=== PATIENT | female | born 1960 | race Caucasian/White ===

== ENCOUNTER 2020-08-03 07:23 | Inpatient (IN) | payer BC ==
[2020-08-03] VITALS (18 sets, daily range): BP systolic 125–147; BP diastolic 70–85
[~2020-08-03] VITALS: Ht 175.3 cm; Wt 65.9 kg
[2020-08-03] MEDS ORDERED: ondansetron/PF 4mg/2ml inj IV ONE ×2 (07:50→10:00)
[2020-08-03] MEDS: morphine 4 MG/ML inj SYRINge IV PRN ×2 (08:07→08:23)
[2020-08-03 09:12] LABS: BASOPHILS % (AUTO) 0.3 % (0-1); EOSINOPHILS % (AUTO) 0.1 % (0-6); HEMATOCRIT 39.1 % (35.0-45.0); HEMOGLOBIN 13.2 g/dl (12.0-16.0); LYMPHOCYTES # (AUTO) 0.8 X10'3 (1.1-4.8); LYMPHOCYTES % (AUTO) 9.9 % (21-51); MEAN CORPUSCULAR HEMOGLOBIN 30.4 PG (27.0-31.0); MEAN CORPUSCULAR HGB CONC 33.8 g/dL (33.0-36.5); MEAN CORPUSCULAR VOLUME 89.9 FL (78-98); MEAN PLATELET VOLUME 7.7 FL (7.4-10.4); MONOCYTES # (AUTO) 0.4 X10'3 (0-0.9); MONOCYTES % (AUTO) 4.8 % (2-12); NEUTROPHILS # (AUTO) 7.2 X10'3 (1.8-7.7); NEUTROPHILS % (AUTO) 84.9 % (42-75); PLATELET COUNT 290 X10'3 (140-440); RED BLOOD COUNT 4.35 X10'6 (4.20-5.60); RED CELL DISTRIBUTION WIDTH 12.8 % (11.5-14.5); WHITE BLOOD COUNT 8.5 X10'3 (4.5-11.0)
[2020-08-03 09:21] LABS: PARTIAL THROMBOPLASTIN TIME 28 SECONDS (22-32)
[2020-08-03 09:23] LABS: ALANINE AMINOTRANSFERASE 22 U/L (12-78); ALBUMIN 3.9 G/DL (3.4-5.0); ALKALINE PHOSPHATASE 73 IU/L (46-116); ANION GAP 13 (8-16); ASPARTATE AMINO TRANSFERASE 20 U/L (10-37); BILIRUBIN,TOTAL 0.5 MG/DL (0.1-1.0); BLOOD UREA NITROGEN 14 MG/DL (7-18); BUN/CREATININE RATIO 18.9 (6.6-38.0); CALCIUM 8.9 MG/DL (8.5-10.1); CHLORIDE 106 MMOL/L (99-107); CREATININE 0.74 MG/DL (0.40-0.90); GLUCOSE 122 MG/DL (70-104); POTASSIUM 4.1 MMOL/L (3.5-5.1); SODIUM 143 MMOL/L (135-145); TOTAL CARBON DIOXIDE 24.1 MMOL/L (24-32); TOTAL PROTEIN 7.9 G/DL (6.4-8.2); eGFR 80 ML/MIN
[2020-08-03] MEDS ORDERED: acetaminophen 325mg tablet PO PRN (09:55)
[2020-08-03] MEDS ORDERED: magnesium hydroxide 30ml (MOM) UD suspension PO PRN (09:55)
[2020-08-03] MEDS ORDERED: morphine 2 MG/ML inj. syringe IV PRN ×3 (09:55→11:05)
[2020-08-03] MEDS ORDERED: mag hydrox/Alum hydrox/simeth 30ml oral suspension PO PRN (09:55)
[2020-08-03] MEDS ORDERED: HYDROmorphone 1 mg/ml syringe IV ONE (10:00)
[2020-08-03] MEDS: heparin, porcine 5000 units/ml vial SQ SCH ×2 (10:01→22:13)
[2020-08-03] MEDS: normal saline 1000ml 1,000 ML IV SCH ×2 (10:16→16:56)
[2020-08-03] MEDS ORDERED: sevoflurane 250ml liquid IH ONE (11:01)
[2020-08-03] MEDS ORDERED: ondansetron/PF 4mg/2ml inj IV PRN (11:05)
[2020-08-03] MEDS ORDERED: hydrALAZINE 20mg/ml inj. IV PRN (11:05)
[2020-08-03] MEDS ORDERED: proCHLORperazine 10 MG/2 ml inj IV PRN (11:05)
[2020-08-03] MEDS ORDERED: morphine 4 MG/ML inj SYRINge IV PRN (11:05)
[2020-08-03] MEDS ORDERED: ringers solution, lacted 1,000 ML IV SCH (11:05)
[2020-08-03] MEDS ORDERED: acetaminophen 1,000mg/100ml IV 100 ML IV PRN (11:05)
[2020-08-03] MEDS ORDERED: labetalol 20mg/4ml (5mg/ml) syringe IV PRN (11:05)
[2020-08-03] MEDS ORDERED: meperidine/PF 25mg/ml syringe IV PRN ×3 (11:05)
[2020-08-03] MEDS ORDERED: ketorolac trometh. 30mg/ml inj. IV ONE (11:05)
[2020-08-03] MEDS ORDERED: aprepitant 40mg capsule PO ONE (11:06)
[2020-08-03] MEDS ORDERED: fentaNYL/PF 50MCG/1 ML 2ML syringe ONE (11:10)
[2020-08-03] MEDS ORDERED: midazolam 2 mg/2 ml injection ONE (11:10)
[2020-08-03] MEDS ORDERED: famotidine/PF 10 mg/ml inj IV ONE (11:11)
[2020-08-03] MEDS ORDERED: ePHEDrine 50MG/ML INJ. ONE (11:29)
[2020-08-03] MEDS ORDERED: ceFAZolin 1000mg inj ONE ×3 (11:30)
[2020-08-03] MEDS ORDERED: LIDOcaine 2% (20mg/ml) 5ml vial ONE (11:30)
[2020-08-03] MEDS ORDERED: propofol inj 20 ML IV ONE (11:30)
[2020-08-03] MEDS ORDERED: rocuronium 10mg/ml inj IV ONE (11:30)
[2020-08-03] MEDS ORDERED: 0.9 % SODIUM CHLORIDE 10 ML VIAL ONE ×3 (11:30)
[2020-08-03] MEDS ORDERED: neostigmine methylsulfate 1 MG/ML 10ml vial ONE (12:10)
[2020-08-03] MEDS ORDERED: ondansetron/PF 4mg/2ml inj ONE (12:10)
[2020-08-03] MEDS ORDERED: glycopyrrolate 0.2mg/ml inj ONE (12:10)
[2020-08-03] MEDS ORDERED: dexamethasone sod phosphate 4mg/ml inj. ONE (12:10)
--- NOTE | 2020-08-03 12:26 | NUR ---
Received from OR via , accompanied by Anesthesiologist DR TAMAYO and report given by Anesthesiolgist. PT OPENS EYES TO VOICE AND MOVING EXT, NO C/O PAIN, SKIN WARM AND PINK, STRONG PEDAL PULSES, DIMAS CLEAR YELLOW TO GRAVITY, PIV RIGHT HAND 20G WITH LR 100ML/HR. VSS.
[2020-08-03] MEDS: ondansetron/PF 4mg/2ml inj IV PRN ×2 (13:05→19:14)
--- NOTE | 2020-08-03 13:06 | NUR ---
PT RATING PAIN 8/10 WITH POST OP SHIVERS. IV TYLENOL AND TORADOL GIVEN WITH MINIMAL RELIEF. PT STATES SHE DOESN'T TOLERATE NARCOTICS WELL. PT AGREED TO TRY DEMEROL FOR THE PAIN AND POST OP SHIVERS. WILL GIVE ZOFRAN WITH NARCOTIC.
--- NOTE | 2020-08-03 13:21 | NUR ---
AFTER GIVING DEMEROL PT BECAME APNEIC AND O2 DECREASED TO 70%. WAS GETTING READY TO BAG PT AND SHE WOKE TO RN CALLING HER NAME AND O2 SAT RETURNED TO 93%.
--- NOTE | 2020-08-03 13:46 | NUR ---
PT MEETS DISCHARGE CRITERIA. MONITORED PT FOR AN ADDITIONAL 30 MIN AFTER GIVING DEMEROL. HER O2 SAT REMAINED IN THE HIGH 90'S, ALL OTHER VS WNL. PT IS RESTING COMFORTABLY WITHOUT POST OP SHIVERS AND NO C/O PAIN, DISTAL PULSES STRONG, DRESSING CD, EMPTIED DIMAS CATH, IV PATENT WITH LR 100ML/HR. TELE #50 PLACED ON PT, TRANS TO ROOM 4024B AND UPDATED JULIA RECEIVING RN OF PT STATUS.
--- NOTE | 2020-08-03 14:10 | NUR ---
Patient in room ORTHO 4024. I have received report from PACU and had the opportunity to ask questions and assume patient care.
[2020-08-03] MEDS ORDERED: LEVO100C4 PO (22:33)
[2020-08-04] MEDS: normal saline 1000ml 1,000 ML IV SCH ×3 (05:55→20:58)
[2020-08-04 06:00] VITALS: BP 119/67
--- NOTE | 2020-08-04 06:30 | NUR ---
Patient in room ORTHO 4024. I have received report from Ailyn RN and had the opportunity to ask questions and assume patient care.
[2020-08-04 07:49] LABS: BASOPHILS % (AUTO) 0.1 % (0-1); EOSINOPHILS % (AUTO) 0 % (0-6); HEMATOCRIT 36.8 % (35.0-45.0); HEMOGLOBIN 12.2 g/dl (12.0-16.0); LYMPHOCYTES # (AUTO) 1.4 X10'3 (1.1-4.8); LYMPHOCYTES % (AUTO) 16.2 % (21-51); MEAN CORPUSCULAR HEMOGLOBIN 30.5 PG (27.0-31.0); MEAN CORPUSCULAR HGB CONC 33.1 g/dL (33.0-36.5); MEAN CORPUSCULAR VOLUME 92.1 FL (78-98); MEAN PLATELET VOLUME 8.5 FL (7.4-10.4); MONOCYTES # (AUTO) 0.7 X10'3 (0-0.9); MONOCYTES % (AUTO) 7.7 % (2-12); NEUTROPHILS # (AUTO) 6.6 X10'3 (1.8-7.7); PLATELET COUNT 270 X10'3 (140-440); RED CELL DISTRIBUTION WIDTH 12.7 % (11.5-14.5); WHITE BLOOD COUNT 8.7 X10'3 (4.5-11.0)
[2020-08-04 08:01] LABS: ANION GAP 11 (8-16); CHLORIDE 104 MMOL/L (99-107); GLUCOSE 101 MG/DL (70-104); POTASSIUM 4.1 MMOL/L (3.5-5.1); SODIUM 137 MMOL/L (135-145); TOTAL CARBON DIOXIDE 22.5 MMOL/L (24-32)
[2020-08-04 08:02] LABS: ALBUMIN 3.4 G/DL (3.4-5.0); BLOOD UREA NITROGEN 17 MG/DL (7-18); BUN/CREATININE RATIO 23.3 (6.6-38.0); CALCIUM 9.1 MG/DL (8.5-10.1); CREATININE 0.73 MG/DL (0.40-0.90); eGFR 81 ML/MIN
[2020-08-04] MEDS: heparin, porcine 5000 units/ml vial SQ SCH ×2 (08:52→20:58)
[2020-08-04 10:00] VITALS: BP 116/65
[2020-08-04] MEDS: ondansetron/PF 4mg/2ml inj IV PRN (10:54)
[2020-08-04] MEDS: levoTHYROXINE 100mcg tablet PO SCH (10:55)
[2020-08-04] MEDS: acetaminophen 325mg tablet PO PRN ×2 (11:26→20:58)
[2020-08-04 18:00] VITALS: BP 128/72
--- NOTE | 2020-08-04 18:11 | NUR ---
Problems reprioritized. Patient report given, questions answered & plan of care reviewed with Bhumika RIDLEY.
--- NOTE | 2020-08-04 18:15 | NUR ---
RECEIVED REPORT FROM BEL AND ASSUMED PATIENT CARE
[2020-08-04 22:00] VITALS: BP 128/73
[2020-08-05 06:00] VITALS: BP 141/76
--- NOTE | 2020-08-05 06:21 | NUR ---
REPORT GIVEN TO DUY RIDLEY
[2020-08-05 07:24] LABS: BASOPHILS % (AUTO) 0.5 % (0-1); EOSINOPHILS % (AUTO) 0.5 % (0-6); HEMATOCRIT 35.6 % (35.0-45.0); HEMOGLOBIN 11.7 g/dl (12.0-16.0); LYMPHOCYTES # (AUTO) 1.4 X10'3 (1.1-4.8); LYMPHOCYTES % (AUTO) 21.3 % (21-51); MEAN CORPUSCULAR HEMOGLOBIN 30.4 PG (27.0-31.0); MEAN CORPUSCULAR HGB CONC 32.8 g/dL (33.0-36.5); MEAN CORPUSCULAR VOLUME 92.5 FL (78-98); MEAN PLATELET VOLUME 8.1 FL (7.4-10.4); MONOCYTES # (AUTO) 0.5 X10'3 (0-0.9); NEUTROPHILS # (AUTO) 4.6 X10'3 (1.8-7.7); NEUTROPHILS % (AUTO) 69.7 % (42-75); PLATELET COUNT 227 X10'3 (140-440); RED BLOOD COUNT 3.85 X10'6 (4.20-5.60); WHITE BLOOD COUNT 6.5 X10'3 (4.5-11.0)
[2020-08-05] MEDS: levoTHYROXINE 100mcg tablet PO SCH (07:37)
[2020-08-05] MEDS: heparin, porcine 5000 units/ml vial SQ SCH (07:37)
[2020-08-05] MEDS: acetaminophen 325mg tablet PO PRN ×2 (07:38→14:34)
[2020-08-05 08:33] LABS: ALBUMIN 3.1 G/DL (3.4-5.0); ANION GAP 11 (8-16); BLOOD UREA NITROGEN 13 MG/DL (7-18); BUN/CREATININE RATIO 21.7 (6.6-38.0); CALCIUM 8.7 MG/DL (8.5-10.1); CHLORIDE 106 MMOL/L (99-107); GLUCOSE 82 MG/DL (70-104); POTASSIUM 4.1 MMOL/L (3.5-5.1); SODIUM 139 MMOL/L (135-145); TOTAL CARBON DIOXIDE 22.5 MMOL/L (24-32); eGFR > 90 ML/MIN
--- NOTE | 2020-08-05 10:05 | NUR ---
Malnutrition Consult: Pt admit DX L femur fx s/p repair. NPO at this time post-op. Pt has no significant weakness, edema, or wt loss hx per EMR and lacks minimum 2 malnutrition criteria at this time. Will monitor for additional criteria this admit. Addendum: 08/05/20 at [address] Amended: Links added.
[2020-08-05] MEDS ORDERED: IBUP-1986 PO (11:35)
[2020-08-05] MEDS: normal saline 1000ml 1,000 ML IV SCH (11:55)
--- NOTE | 2020-08-06 13:03 | NUR ---
CASE MANAGEMENT DISCHARGE FOLLOW UP: Spoke with pt via telephone. Reports that she is feeling "just peachy", admits to pain 2-3/10 that is tolerable; denies CP, SOB/dyspnea, fever. States dressing is CDI. Verbalizes understanding of s/sx requiring further evaluation/emergent assistance. Verbalizes understanding of new and current medications. Verbalizes compliance with MD discharge instructions. Verbalizes understanding of the importance in making/keeping follow-up appointments, states surgeon's office will call to set up followup appt within 2 weeks.. States no further questions/concerns at this time. Addendum: 08/06/20 at 1321 by Willow Luther RN Pt states that a friend gave her a shower chair to use and she is using her walker, also has a toilet seat raiser with handles so she can go to the bathroom without assistance. Addendum: 08/06/20 at 1322 by Willow Luther RN Pt states forgot icepacks, wants to know if they are still available. Contacted Ortho floor, they still have her packs, will send down to front attendant. Notified pt that packs will be available for pickup at front attendant of [facility].
== END 2020-08-05 15:30 | disposition home or self-care (01) | DRG 482 ==
LOC: ER 07:26 → ED HOLD 09:55 → PACU 11:35 → ORTHO 4S 13:35
PROVIDERS: ADMIT Family Medicine; ATTEND Family Medicine
PROC: 0QH734Z Insertion of Internal Fixation Device into Left Upper Femur, Percutaneous Approach (ICD-10-PCS; principal; 2020-08-03 11:04)
DX: S72.012A Unspecified intracapsular fracture of left femur, initial encounter for closed fracture (principal); E03.9 Hypothyroidism, unspecified; W01.0XXA Fall on same level from slipping, tripping and stumbling without subsequent striking against object, initial encounter; Z20.822 Contact with and (suspected) exposure to COVID-19; Z88.5 Allergy status to narcotic agent; Z88.8 Allergy status to other drugs, medicaments and biological substances; Y93.89 Activity, other specified; Y92.091 Bathroom in other non-institutional residence as the place of occurrence of the external cause; Y99.8 Other external cause status
CPT/HCPCS: 36415; 71045; 73502; 76000; 80048; 80053; 84443; 85025; 85610; 85730; 86885; 86900; 86901; 87081; 87635; 93005; 96374; 96375; 97110; 97116; 97161; 97530; 99285; A4618; A6446; A7000; C1713; C9803; G0378; J0131; J0690; J1100; J1170; J1644; J1885; J2001; J2175; J2250; J2270; J2405; J2704; J2710; J3010; J3490; J7030; J7120; J8501